=== PATIENT | female | born 1955 | race Caucasian/White ===

== ENCOUNTER 2019-08-08 08:09 | Emergency (ER) | payer BC ==
--- OUTSIDE RECORDS SUMMARY | 2019-08-08 08:18 | XMS REPORT | Summary of Care ---
:1955 Author Organization [facility] Address [address] [facility] [place] [address] Care Team Providers Name Role Phone Galen Whitaker MD Primary Care Provider Reason for Visit Reason Comments Follow Up LTK Encounter Details Date Type Department Care Team Description 06/29/2019 Office Visit [facility] - Royce Steinberg, Status post total Jenna RICKETTS left knee replacement 10 [employer] [address] [facility] (Primary Dx) [address] [place] [address] [place] [address] [phone] Allergies No Known Allergiesdocumented as of this encounter (statuses as of 06/29/2019) Medications Medication Sig Dispensed Refills Start Date End Date Status levothyroxine (SYNTHROID) Take 125 mcg by 0 Active 125 MCG Oral Tab mouth BEFORE BREAKFAST. Black Pepper-Turmeric Take by mouth 0 Active (TURMERIC COMPLEX/BLACK DAILY. PEPPER PO) docusate sodium (COLACE) Take 100 mg by 0 Active 100 MG Oral Cap mouth DAILY. Biotin 99085 MCG Oral Tab Take by mouth 0 Active DAILY. acetaminophen (TYLENOL) Take 2 Tabs by 60 Tab 0 06/08/2018 Active 500 MG Oral Tab mouth EVERY EIGHT HOURS. aspirin 325 MG Oral Tab Take 1 Tab by 60 Tab 0 06/08/2018 Active EC mouth TWICE DAILY. cyclobenzaprine Take 1 Tab by 42 Tab 0 06/08/2018 Active (FLEXERIL) 5 MG Oral Tab mouth THREE TIMES DAILY NEEDED (muscle spasms). OXYcodone Take 1 Tab by 42 Tab 0 06/08/2018 Active (OXY-IR,OXY-FAST) 5 MG mouth EVERY Oral Tab FOUR HOURS NEEDED (post op pain). Max Daily Amount: 30 mg. tramadol (ULTRAM) 50 MG Take 1 Tab by 28 Tab 0 06/08/2018 Active Oral Tab mouth EVERY SIX HOURS NEEDED (post op pain). Max Daily Amount: 200 mg. documented as of this encounter (statuses as of 06/29/2019) Active Problems Problem Noted Date Status post total left knee replacement 06/24/2018 Primary osteoarthritis of left knee 01/12/2018 Arthralgia of left knee 09/10/2016 documented as of this encounter (statuses as of 06/29/2019) Social History Tobacco Use Types Packs/Day Years Used Date Never Smoker Smokeless Tobacco: Never Used Alcohol Use Drinks/Week oz/Week Comments Yes rarely Sex Assigned at Date Recorded Not on file documented as of this encounter Last Filed Vital Signs Vital Sign Reading Time Taken Comments Blood Pressure - - Pulse - - Temperature - - Respiratory Rate 16 06/29/2019 12:20 PM EST Oxygen Saturation - - Inhaled Oxygen Concentration - - Weight 82.6 kg (182 lb) 06/29/2019 12:20 PM EST Height 175.3 cm (5' 9") 06/29/2019 12:20 PM EST Body Mass Index 26.88 06/29/2019 12:20 PM EST documented in this encounter Progress Notes Royce Steinberg MD - 06/29/2019 12:15 PM EST PATIENT: Katja Gonzales : 1955 DATE OF SERVICE: 06/29/2019 SUBJECTIVE: Katja Gonzales is a 64-y.o. female. 1 year status post Left total knee arthroplasty. Doing well, no acute issues. OBJECTIVE: Resp 16 | Ht 5' 9" (1.753 m) | Wt 182 lb (82.6 kg) | BMI 26.88 kg/m Incision well healed. No effusion. Range of motion 0 to 115. +1 collateral Balance. Distal extremityneuro intact. X-ray shows well aligned cemented total knee arthroplasty, no evidence of loosening ASSESSMENT: ICD-9-CM ICD-10-CM 1. Status post total left knee replacement V43.65 Z96.652 XR KNEE 3 VIEWS LEFT PLAN: Activity as tolerated Follow up in 1 year with xrays Author: Royce Steinberg MD 06/29/2019 12:28 Portions of this note were made with voice recognition software documented in this encounter Plan of Treatment Name Type Priority Associated Diagnoses Date/Time XR KNEE 3 VIEWS LEFT Imaging Routine Status post total left 06/29/2019 12: 23 PM EST knee replacement Name Type Priority Associated Diagnoses Order Schedule XR KNEE 3 VIEWS LEFT Imaging Routine Status post total left Expected: 06/15, knee replacement Expires: 06/15/2020 Health Maintenance Due Date Last Done Comments DTaP/Tdap/Td Vaccines (1 - 1966 Tdap) DEPRESSION SCREENING 1967 HIV SCREENING 1970 LIPID DISORDER SCREENING 1973 PAP SMEAR 1976 HEPATITIS C SCREENING 1995 MAMMOGRAM (SCREENING) 1995 Colonoscopy 2005 ZOSTER IMMUNIZATION SERIES 2005 (1 of 2) INFLUENZA VACCINE (#1) 2019 DIABETES SCREENING 06/08/2019 06/08/2018, 06/07/2018, 05/19/2018, Additional history exists HEPATITIS A IMMUNIZATION Aged Out No longer eligible SERIES based on patient's age to complete this topic HPV IMMUNIZATION SERIES Aged Out No longer eligible based on patient's age to complete this topic MENINGOCOCCAL VACCINE IMM Aged Out No longer eligible based on patient's age to complete this topic PNEUMOCOCCAL 0-64 YRS Aged Out No longer eligible based on patient's age to complete this topic documented as of this encounter Implants Implanted Type Area Global Chief Creative Officer Device Shelf Model / Serial Identifier Expiration / Lot Date Persona Tibal Stem 5 Deg Sz F L - [id number] Left: ARINA DOLAN 2027 [id number] / Implanted: Qty: 1 on 06/06/2018 by Royce Steinberg MD at [facility] / [id number] Femoral Cr Narrow Sz10 Lt Persona - [id number] Left: ARINA DOLAN 12/31 [id number] / Implanted: Qty: 1 on 06/06/2018 by Royce Steinberg MD at [facility] [employer] / [id number] Smart Set Cement - [id number] Left: DEPUY 10/01/2019 [id number] / Implanted: Qty: 2 on 06/06/2018 by Royce Steniberg MD at [facility] / [id number] Tibial Mc Bear /Ef Lt Persona - [id number] Left: ARINA KELSI 10/30/2021 [id number] / Implanted: Qty: 1 on 06/06/2018 by Royce Steinberg MD at [facility] [employer] / [id number] documented as of this encounter Results Not on filedocumented in this encounter Visit Diagnoses Diagnosis Status post total left knee replacement documented in this encounter Insurance Payer Benefit Plan / Subscriber ID Effective Dates Phone Address Type Group LAUREANO ACEVES [id number] 2015-Present [employer] Guarant[employer] Name Account Type Relation to Date of Phone Billing Patient Address Katja Gonzales Personal/Family Self 1955 [phone] [id number] (Home) SAR[place]A [address]RADE [phone] [phone] (Work) [place] [phone] documented as of this encounter
--- OUTSIDE RECORDS SUMMARY | 2019-08-08 08:18 | XMS REPORT | Continuity of Care Document ---
:1955 External Reference #:[id number] Author Name Vahe Whatley DPM (transmitted by agent of provider Alexia Mccormick) Address [address] [place] [id number] Care Team Providers Name Role Phone Galen Whitaker MD - Internal Care Team Information Workforce Planner Medicine Problems Description No Information Available Social History Type Date Description Comments Sex Unknown Tobacco Use Start: Unknown Never Smoked Cigarettes Smoking Status Reviewed: 07/07/19 Never Smoked Cigarettes ETOH Use Rarely consumes alcohol Tobacco Use Start: Unknown Patient has never smoked Recreational Drug Use Denies Drug Use Exercise Type/Frequency Exercises regularly Allergies, Adverse Reactions, Alerts Description No Known Drug Allergies Medications Active Medications SIG Qnty Indications Ordering Provider Date Levothyroxine Sodium Take One Tablet Unknown 125mcg By Mouth Daily In Tablets The Morning On An Empty Stomach Restasis 1 drop both eyes Unknown 0.05% Emulsion twice daily. please dispense 180 vials, which is 3 month supply Immunizations Description No Information Available Vital Signs Date Vital Result Comment 07/07/2019 2:12pm BP Systolic 142 mmHg BP Diastolic 86 mmHg Body Temperature 98.6 F Heart Rate 70 /min Height 68.5 inches 5'8.50" Weight 203.00 lb BMI (Body Mass Index) 30.4 kg/m2 BSA (Body Surface Area) 2.07 m2 [place] body weight in kilograms 65 kg O2 % BldC Oximetry 98 % Results Description No Information Available Procedures Date Code Description Status 07/07/2019 60140 Pare Hyperkeratotic Lesion, 2-4 Completed Medical Devices Description No Information Available Encounters Type Date Location Provider Dx Diagnosis Office Visit 07/07/2019 Podiatry Office Vahe Whatley, L85.8 Other specified 2:00p DPM epidermal thickening M79.672 Pain in left foot M79.675 Pain in left toe(s) M20.11 Hallux valgus (acquired), right foot Assessments Date Code Description Provider 07/07/2019 L85.8 Other specified epidermal thickening Vahe Whatley DPM 07/07/2019 M79.672 Pain in left foot Vahe Whatley DPM 07/07/2019 M79.675 Pain in left toe(s) Vahe Whatley DPM 07/07/2019 M20.11 Hallux valgus (acquired), right foot Vahe Whatley DPM Plan of Treatment 07/07/2019 - Vahe Whatley DPML85.8 Other specified epidermal thickeningComments:The intractable plantar keratoma tissue was cleaned with alcohol prep and excised en toto with a sterile #15 blade on a #3 handle. The patient was told to discard worn shoe gear and replace with shoe gear that has good support and plenty of cushioning.Follow up:Follow-up when necessary IPK' sM79.672 Pain in left footM79.675 Pain in left toe(s)M20.11 Hallux valgus ( acquired), right foot Functional Status Functional Condition Comment Date Status Glasses Active Partial Dentures Active Partial lower dentures Active Mental Status Description No Information Available Referrals Description No Information Available
--- OUTSIDE RECORDS SUMMARY | 2019-08-08 08:18 | XMS REPORT | Continuity of Care Document ---
:1955 External Reference #:[id number] Author Name Vahe Whatley DPM (transmitted by agent of provider Imelda Ziegler) Address [facility] [place] [address] Care Team Providers Name Role Phone Galen Whitaker MD - Internal Care Team Information Acquisition Associate [phone] Medicine Problems Description No Information Available Social [...] kg/m2 BSA (Body Surface Area) 2.07 m2 [place] body weight in kilograms 65 kg O2 % BldC Oximetry 98 % Results Description No Information Available Procedures Description No Information Available Medical Devices Description No Information Available Encounters Description No Information Available Assessments Description No Information Available Plan of Treatment No Information Available Functional Status Functional Condition Comment Date Status Glasses Active Partial Dentures Active Partial lower dentures Active Mental Status Description No Information Available Referrals Description No Information Available
--- NOTE | 2019-08-08 08:43 | UC ---
Bite Injury/Animal HPI - HPI Summary HPI Summary: 64-year-old woman comes in with a chief complaint of tick bites on the left arm and left abdomen. She found him this morning and she attempted to remove then she is gotten piece of tick off. There is some red irritation around the one on the abdomen otherwise no rash no fevers no chills feels well otherwise. She thinks it only been on there for a day but she's not totally sure when they attached. - History of Current Complaint Chief Complaint: UCBiteInjury Stated Complaint: TICKS Time Seen by Provider: 08/08/19 08:32 Pain Intensity: 0 - Allergies/Home Medications Allergies/Adverse Reactions: Allergies Allergy/AdvReac Type Severity Reaction Status Date / Time No Known Allergies Allergy Verified 08/08/19 08:28 Home Medications: Home Medications DOXYcycline CAP(*) [DOXYcycline 100MG CAP(*)] 200 mg PO ONCE #2 cap 08/08/19 [Rx ] Levothyroxine TAB* [Synthroid TAB*] 125 mcg PO 0800 08/08/19 [History Confirmed 08/08/19] Loratadine [Allergy Relief] 10 mg PO DAILY 08/08/19 [History Confirmed 08/08/19] PMH/Surg Hx/FS Hx/Imm Hx Previously Healthy: Yes Endocrine History: Hypothyroidism - Surgical History Surgical History: Yes Surgery Procedure, Year, and Place: left knee replaced - Family History Known Family History: Positive: Non-Contributory - Social History Alcohol Use: Rare Substance Use Type: None Smoking Status (MU): Never Smoked Tobacco Review of Systems All Other Systems Reviewed And Are Negative: Yes Constitutional: Positive: Negative Skin: Positive: Other - SEE HPI Eyes: Positive: Negative ENT: Positive: Negative Respiratory: Positive: Negative Cardiovascular: Positive: Negative Motor: Positive: Negative Neurovascular: Positive: Negative Musculoskeletal: Positive: Negative Neurological/Mental Status: Positive: Negative Psychological: Positive: Negative Is Patient Immunocompromised?: No Physical Exam Triage Information Reviewed: Yes Appearance: Well-Appearing, No Pain Distress, Well-Nourished Vital Signs: Initial Vital Signs Temp 97.8 F 08/08/19 08:21 Pulse 72 08/08/19 08:21 Resp 18 08/08/19 08:21 BP 140/69 08/08/19 08:21 Pulse Ox 98 08/08/19 08:21 Vital Signs Reviewed: Yes Eye Exam: Normal Eyes: Positive: Conjunctiva Clear Neck: Positive: Supple Respiratory: Positive: No respiratory distress Musculoskeletal: Positive: Strength Intact, ROM Intact Neurological: Positive: Alert, Muscle Tone Normal Psychological: Positive: Age Appropriate Behavior Skin: Positive: Other - The left upper arm patient has a 1 mm dark area that appears to be the mouth parts of a tick which I removed with a tick twister. No bull's-eye rash. No cellulitis. On the left lower abdomen there is an area of 1.5 cm of erythema with a portion of a tick still present which are removed with tick twister. No bull's-eye rash. Bite Injury Course/Dx - Course Course Of Treatment: We'll treat with 200 mg doxycycline once. If patient develops any symptoms of Lyme disease she will need to be reevaluated. - Differential Dx/Diagnosis Provider Diagnosis: Tick bite Discharge ED - Sign-Out/Discharge Documenting (check all that apply): Patient Departure All imaging exams completed and their final reports reviewed: No Studies - Discharge Plan Condition: Stable Disposition: HOME Prescriptions: DOXYcycline CAP(*) [DOXYcycline 100MG CAP(*)] 200 mg PO ONCE #2 cap Patient Education Materials: Tick Bite (ED) Referrals: Meron KUMAR,Huy Mascorro [Primary Care Provider] - Additional Instructions: FOLLOW UP WITH YOUR DOCTOR IF NOT COMPLETELY IMPROVED. GET REEVALUATED IF NOT IMPROVING OR WORSE; RASH, BULLS EYE RASH, SYMPTOMS OF LYME DISEASE OR ANY QUESTIONS OR CONCERNS. - Billing Disposition and Condition Condition: STABLE Disposition: Home
[2019-08-08 08:55] VITALS: BP 140/69
== END 2019-08-08 08:47 | disposition home or self-care (01) ==
LOC: UCCORT 08:09
DX: S40.862A Insect bite (nonvenomous) of left upper arm, initial encounter (principal); S30.861A Insect bite (nonvenomous) of abdominal wall, initial encounter; W57.XXXA Bitten or stung by nonvenomous insect and other nonvenomous arthropods, initial encounter; Y92.9 Unspecified place or not applicable; E03.9 Hypothyroidism, unspecified; Z79.890 Hormone replacement therapy; Z96.652 Presence of left artificial knee joint
CPT/HCPCS: 99202; G0463